=== PATIENT | female | born 2000 | race Caucasian/White ===

== ENCOUNTER 2021-04-17 00:03 | Inpatient (IN) | payer OTHER ==
[~2021-04-17] VITALS: Ht 157.5 cm; Wt 95.3 kg
--- NOTE | 2021-04-17 11:37 | PR ---
[facility] [address] [place], [place] [address] Signed Progress Notes IP Datetime Report Generated by CPN: 04/17/2021 11:37 PROGRESS NOTES: [id number] Impression: Reassuring Heart Rate Procedures: Artificial ROM; Sterile Vag Exam Plan: Continue Present Management VITAL SIGNS: [id number] Vital Signs: Reviewed VS Notable Details: mild HTN EXAM: [id number] Dilatation: 1.0 Effacement: 50 Station: -2 Contractions: irregular, irritability MEMBRANES: [id number] Comments: Comfortable after epidural. Will hopefully develop more regular contraction pattern now. FETUS A: [id number] FHR Baseline: 145 Variability: Moderate 6-25bpm Accelerations: 15X15 Decelerations: None FHR Category: Category I Presentation: Vertex Comments on Fetus A: no evidence of metabolic acidosis FETUS B: [id number] Signing Physician: France Orlando MD Copies: ~ *Electronically Signed* 04/17/21 1137 FRANCE ORLANDO MD PATIENT NAME: JCARLOS TRAVIS PROGRESS NOTE DATE OF : 98 PHYSICIAN: FRANCE ORLANDO MD RPT #: [id number] REPORT IS CONFIDENTIAL AND NOT TO BE RELEASED WITHOUT AUTHORIZATION
--- NOTE | 2021-04-17 17:04 | PR ---
[facility] [address] [facility] [place], [place] [address] Signed Progress Notes IP Datetime Report Generated by DEA: 04/17/2021 17:04 PROGRESS NOTES: [id number] Impression: Normal Progression of Labor; Reassuring Heart Rate Procedures: Intrauterine Pressure Catheter; Sterile Vag Exam Plan: Augmentation VITAL SIGNS: [id number] Vital Signs: Reviewed VS Notable Details: mild HTN EXAM: [id number] Dilatation: 5.0 Effacement: 95 Station: -2 Contractions: irregular, irritability MEMBRANES: [id number] Comments: Some progress but ctxs difficult to apple picker and I suspect they need to be stronger. Will place IUPC and augment. FETUS A: [id number] FHR Baseline: 145 Variability: Moderate 6-25bpm Accelerations: 15X15 Decelerations: None FHR Category: Category I Presentation: Vertex Comments on Fetus A: no evidence of metabolic acidosis FETUS B: [id number] Signing Physician: France Orlando MD Copies: ~ *Electronically Signed* 04/17/21 1704 FRANCE ORLANDO MD PATIENT NAME: JCARLOS TRAVIS PROGRESS NOTE DATE OF : 98 PHYSICIAN: FRANCE ORLANDO MD RPT #: [id number] REPORT IS CONFIDENTIAL AND NOT TO BE RELEASED WITHOUT AUTHORIZATION
--- NOTE | 2021-04-17 19:40 | PR ---
[facility] [address] [place], [place] [address] Signed Progress Notes IP Datetime Report Generated by CPN: 04/17/2021 19:40 PROGRESS NOTES: [id number] Impression: Reassuring Heart Rate Procedures: Sterile Vag Exam Plan: Anesthesia Consult VITAL SIGNS: [id number] Vital Signs: Reviewed VS Notable Details: mild HTN EXAM: [id number] Dilatation: 7.0 Effacement: 80 Station: -1 Contractions: irregular, irritability MEMBRANES: [id number] Comments: status reassuring currently but this has required multiple position changes, stopping pit, using subq terb. Will continue close observation. FETUS A: [id number] FHR Baseline: 145 Variability: Moderate 6-25bpm Accelerations: 15X15 Decelerations: None FHR Category: Category I Presentation: Vertex Comments on Fetus A: no evidence of metabolic acidosis FETUS B: [id number] Signing Physician: France Orlando MD Copies: ~ *Electronically Signed* 04/17/211939 FRANCE ORLANDO MD PATIENT NAME: JCARLOS TRAVIS PROGRESS NOTE DATE OF : 98 PHYSICIAN: FRANCE ORLANDO MD RPT #: [id number] REPORT IS CONFIDENTIAL AND NOT TO BE RELEASED WITHOUT AUTHORIZATION
[2021-04-18] MEDS ORDERED: FLUOXETINE HCL10 M1 PO (18:42)
--- NOTE | 2021-04-19 09:39 | PR ---
[facility] [address] [place], [place] [address] Signed PP Progress Notes Datetime Report Generated by DEA: 04/19/2021 09:38 SUBJECTIVE: [id number] Pain: Within Normal Limits Nausea/Vomiting: Denies Vital Signs: [id number] Vital Signs: Reviewed Notable Details: mild HTN EXAM: Ongoing Cardiovascular: Not Done Respiratory: Not Done Abdomen/Uterus: Abnormal Lochia: Normal Vulva/Perineum: Not Done Breasts: Not Done CVA Tenderness: Not Done Extremities: Normal Incision: Not Applicable Progress: Not Applicable Exam Comments: Fundus firm, NT @ U-1. H/H 7.4/23.7, WBC 18, plat 198k IMPRESSION/PLAN/PROCEDURES: [id number] Impression: Normal Progression Plan: Continue Present Management Other Procedures: IV iron Progress Notes: Very anemic though tolerating it thus far. She never started iron prescribed during her as she had been anemic at that time as well. Will do IV iron today but reinforced need to take her iron consistently after discharge. Her BPs have not been in the severe range though higher than her baseline. She will be discharged tomorrow by Dr. Enrique assuming she is still doing well to f/u with me on Thu. Signing Physician: France Orlando MD Copies: *Electronically Signed* 04/19/21 0938 FRANCE ORLANDO MD PATIENT NAME: JCARLOS TRAVIS PROGRESS NOTE DATE OF : 98 PHYSICIAN: FRANCE ORLANDO MD RPT #: [id number] REPORT IS CONFIDENTIAL AND NOT TO BE RELEASED WITHOUT AUTHORIZATION [address] [address] Signed ~ *Electronically Signed* 04/19/21 09 FRANCE ORLANDO MD PATIENT NAME: JCARLOS TRAVIS PROGRESS NOTE DATE OF : 98 PHYSICIAN: FRANCE ORLANDO MD RPT #: [id number] REPORT IS CONFIDENTIAL AND NOT TO BE RELEASED WITHOUT AUTHORIZATION
--- NOTE | 2021-04-19 23:03 | PR ---
[facility] [address] [place], [place] [address] Signed PP Progress Notes Datetime Report Generated by CPN: 04/19/2021 23:03 SUBJECTIVE: [id number] Pain: Within Normal Limits Nausea/Vomiting: Denies Flatus: No Vital Signs: [id number] Vital Signs: Reviewed Notable Details: Severe-range BP EXAM: Ongoing Cardiovascular: Normal Respiratory: Normal Abdomen/Uterus: Normal Lochia: Normal Vulva/Perineum: Not Done Breasts: Not Done CVA Tenderness: Not Done Extremities: Normal Incision: Not Applicable Progress: Not Applicable Exam Comments: Resting in bed, NAD, denies VICKERS/ vision changes Abd SNTND, FFBU Ext: 1+ BLLE pitting edema Neuro: BL Patellar DTRs 2+, neg clonus BL IMPRESSION/PLAN/PROCEDURES: [id number] Impression: Induced Hypertension Plan: Continue Present Management Other Plans: Antihypertensive therapy Other Procedures: IV iron Progress Notes: Notified by RN of severe-range BP, not sustained on repeat initially but recurrent. -PC ratio 0.4 on admission, consistent with pre-eclampsia without severe features -labetalol IV 20mg administered @ 2242 -labs significant for AST elevation to 43 from 15 on admission, Cr 0.82 from 0.74. Plt stable at 213. Signing Physician: Wellington Rtoh DO *Electronically Signed* 04/19/21 3947 WELLINGTON ROTH DO PATIENT NAME: JCARLOS TRAVIS PROGRESS NOTE DATE OF : 98 PHYSICIAN: WELLINGTON ROTH DO RPT #: [id number] REPORT IS CONFIDENTIAL AND NOT TO BE RELEASED WITHOUT AUTHORIZATION [address], [place] [address] Signed Copies: ~ *Electronically Signed* 04/19/21 2303 WELLINGTON ROTH DO PATIENT NAME: JCARLOS TRAVIS PROGRESS NOTE DATE OF : 98 PHYSICIAN: WELLINGTON ROTH DO RPT #: [id number] REPORT IS CONFIDENTIAL AND NOT TO BE RELEASED WITHOUT AUTHORIZATION
--- NOTE | 2021-04-20 09:38 | PR ---
[facility] [address] [place], [place] [address] Signed PP Progress Notes Datetime Report Generated by DEA: 04/20/2021 09:37 SUBJECTIVE: [id number] Pain: Within Normal Limits Nausea/Vomiting: Denies Flatus: Yes Bowel Movement: Yes Vital Signs: [id number] Vital Signs: Reviewed Notable Details: normotensive to mildly elevated since starting IV MgSO4. Error @ 0836; per RN pt was moving arm when cuff started to inflate, see repeat 2 minutes later. EXAM: Ongoing Cardiovascular: Normal Respiratory: Normal Abdomen/Uterus: Normal Lochia: Normal Vulva/Perineum: Not Done Breasts: Not Done CVA Tenderness: Not Done Extremities: Abnormal Incision: Not Applicable Progress: Abnormal Exam Comments: NAD, lying in bed, talking with her mother on FaceTime RRR No dyspnea/ retractions Abd: SNTND, neg Kemp's sign, RUQ pain resolved since norco. FFBU. Ext: 1+ BLLE pitting edema Neuro: Patellar DTRs 3+ BL, 1 beat clonus on Left. IMPRESSION/PLAN/PROCEDURES: [id number] Impression: Difficulties; Induced Hypertension Plan: Continue Present Management Other Plans: Antihypertensive therapy Other Procedures: IV iron Progress Notes: PPD#2 s/p , complicated by preEclampsia -MgSO4 started at 0546 for severe-range BP requiring repeated treatment with antihypertensive agents, 6g initial bolus then 2g/hr. Will increase rate to 2.5g/hr based on clinical exam -s/p IV Labetalol 20mg, 40mg, 40mg *Electronically Signed* 04/20/21 0937 WELLINGTON ROTH DO PATIENT NAME: JCARLOS TRAVIS PROGRESS NOTE DATE OF : 98 PHYSICIAN: WELLINGTON ROTH DO RPT #: [id number] REPORT IS CONFIDENTIAL AND NOT TO BE RELEASED WITHOUT AUTHORIZATION [facility] [address] [facility] [place], [place] [address] Signed -Normotensive to mildly elevated BP since starting magnesium, tolerating well. Next magnesium level due at 1130 -Mild elevation in AST and Cr, plan to repeat labs tomorrow am prior to DC MgSO4 Chronic anemia with acute blood loss - s/p IV iron infusion Baby currently under bilirubin lights Plan: -continue MgSO4 x 24 hrs, with repeat labs tomorrow am prior to discontinuing Magnesium -continue Mg level every 6 hours Discussed with pt, she is in agreement with plan Signing Physician: Wellington Roth DO Copies: ~ *Electronically Signed* 04/20/2137 WELLINGTON ROTH DO PATIENT NAME: JCARLOS TRAVIS PROGRESS NOTE DATE OF : 98 PHYSICIAN: WELLINGTON ROTH #: [id number] REPORT IS CONFIDENTIAL AND NOT TO BE RELEASED WITHOUT AUTHORIZATION
--- NOTE | 2021-04-20 17:47 | EKG ---
[facility] [address] [facility] [place], [place] [address] Signed Normal sinus rhythm with sinus arrhythmia Normal ECG No previous ECGs available Confirmed by VANNESA JONES DO ([id number]) on 04/20/2021 5:47:34 PM Electronically Signed By: VANNESA JONES DO 04/20/21 1747 PATIENT NAME: JCARLOS TRAVIS Electrocardiogram DATE OF : 98 PHYSICIAN: VANNESA OJNES DO REPORT #: [id number] REPORT IS CONFIDENTIAL AND NOT TO BE RELEASED WITHOUT AUTHORIZATION
--- NOTE | 2021-04-21 07:24 | PR ---
[facility] [address] [place], [place] [address] Signed PP Progress Notes Datetime Report Generated by CPN: 04/21/2021 07:24 SUBJECTIVE: [id number] Pain: Within Normal Limits Nausea/Vomiting: Denies Flatus: Yes Bowel Movement: No Vital Signs: [id number] Vital Signs: Reviewed Notable Details: Intermittent mildly elevated BP while on MgSO4, no further severe BP EXAM: Ongoing Cardiovascular: Normal Respiratory: Normal Abdomen/Uterus: Normal Lochia: Normal Vulva/Perineum: Not Done Breasts: Not Done CVA Tenderness: Not Done Extremities: Normal Incision: Not Applicable Progress: Abnormal Exam Comments: NAD, lying in bed RRR No dyspnea or retractions Abd SNTND, FFBU Ext: 1+ BLLE pitting edema, IPCs in place : Hall in place, diuresing very well Neuro: Patellar DTRs 2+, no clonus IMPRESSION/PLAN/PROCEDURES: [id number] Impression: Induced Hypertension Plan: Continue Present Management Other Plans: Antihypertensive therapy Other Procedures: IV iron Progress Notes: Pt is a 20 yo PPD # 3 s/p , with course complicated by development of severe features -sustained severe BP requiring antihypertensive therapy, Labetalol IV 20mg, then 40mg, then additional 40mg administered. AST and Cr elevated. -MgSO4 was started 04/20 and continued for 24 hours, pt had intermittent headache while on Magnesium, each time responded well to [place] *Electronically Signed* 04/21/21 0709 WELLINGTON ROTH DO PATIENT NAME: JCARLOS TRAVIS PROGRESS NOTE DATE OF : 98 PHYSICIAN: WELLINGTON ROTH DO RPT #: [id number] REPORT IS CONFIDENTIAL AND NOT TO BE RELEASED WITHOUT AUTHORIZATION [facility] [address] [facility] [place] [address] Signed -Procardia 30XL started this morning at time of MGSO4 discontinuation, AST improving Plan: Continue to monitor BP through the day today, if BP are perfect on medication may consider DC to home tonight, otherwise plan for DC in the am Signing Physician: Wellington Roth DO Copies: ~ *Electronically Signed* 04/21/21 0724 WELLINGTON ROTH DO PATIENT NAME: JCARLOS TRAVIS PROGRESS NOTE DATE OF : 98 PHYSICIAN: WELLINGTON ROTH DO RPT #: [id number] REPORT IS CONFIDENTIAL AND NOT TO BE RELEASED WITHOUT AUTHORIZATION
--- NOTE | 2021-04-22 08:33 | PR ---
[facility] [address] [facility] [place], [place] [address] Signed PP Progress Notes Datetime Report Generated by CPN: 04/22/2021 08:33 SUBJECTIVE: [id number] Pain: Within Normal Limits Nausea/Vomiting: Denies Flatus: Yes Bowel Movement: No Vital Signs: [id number] Vital Signs: Reviewed Notable Details: mild increases in BP on Procardia EXAM: Met Cardiovascular: Not Done Respiratory: Not Done Abdomen/Uterus: Abnormal Lochia: Normal Vulva/Perineum: Not Done Breasts: Not Done CVA Tenderness: Not Done Extremities: Abnormal Incision: Not Applicable Progress: Abnormal Exam Comments: Fundus firm, NT @ U-1 1+ pitting LE edema H/H 8.8/27.9, WBC 11.6, plat 344k BUN/Creat 5/0.8 AST 28 IMPRESSION/PLAN/PROCEDURES: [id number] Impression: Normal Progression; Induced Hypertension Plan: Discharge Other Plans: Antihypertensive therapy Other Procedures: IV iron Progress Notes: BPs much better on the Procardia and she is otherwise doing well. I feel she is ready for D/C. Signing Physician: France Orlando MD Copies: *Electronically Signed* 04/22/21832 FRANCE ORLANDO MD PATIENT NAME: JCARLOS TRAVIS PROGRESS NOTE DATE OF : 98 PHYSICIAN: FRANCE ORLANDO MD RPT #: [id number] REPORT IS CONFIDENTIAL AND NOT TO BE RELEASED WITHOUT AUTHORIZATION [facility] [address] [place], [place] [address] Signed ~ *Electronically Signed* 04/22/21 0833 FRANCE ORLANDO MD PATIENT NAME: JCARLOS TRAVIS PROGRESS NOTE DATE OF : 98 PHYSICIAN: FRANCE ORLANDO MD RPT #: [id number] REPORT IS CONFIDENTIAL AND NOT TO BE RELEASED WITHOUT AUTHORIZATION
== END 2021-04-22 10:15 | disposition home or self-care (01) | DRG 806 ==
LOC: FBC 00:03
PROVIDERS: ADMIT Obstetrics & Gynecology; ATTEND Obstetrics & Gynecology
PROC: 10E0XZZ Delivery of Products of Conception, External Approach (ICD-10-PCS; principal; 2021-04-17)
PROC: 0KQM0ZZ Repair Perineum Muscle, Open Approach (ICD-10-PCS; 2021-04-17)
PROC: 10907ZC Drainage of Amniotic Fluid, Therapeutic from Products of Conception, Via Natural or Artificial Opening (ICD-10-PCS; 2021-04-17)
PROC: 3E0DXGC Introduction of Other Therapeutic Substance into Mouth and Pharynx, External Approach (ICD-10-PCS; 2021-04-17)
PROC: 10H07YZ Insertion of Other Device into Products of Conception, Via Natural or Artificial Opening (ICD-10-PCS; 2021-04-17)
PROC: 3E0R3BZ Introduction of Anesthetic Agent into Spinal Canal, Percutaneous Approach (ICD-10-PCS; 2021-04-17)
PROC: 00HU33Z Insertion of Infusion Device into Spinal Canal, Percutaneous Approach (ICD-10-PCS; 2021-04-17)
DX: O14.04 Mild to moderate pre-eclampsia, complicating childbirth (principal); D62 Acute posthemorrhagic anemia; Z37.0 Single live birth; O99.214 Obesity complicating childbirth; E66.9 Obesity, unspecified; O99.344 Other mental disorders complicating childbirth; F32.A Depression, unspecified; F41.9 Anxiety disorder, unspecified; O64.0XX0 Obstructed labor due to incomplete rotation of fetal head, not applicable or unspecified; O99.02 Anemia complicating childbirth; O70.1 Second degree perineal laceration during delivery; Z3A.37 37 weeks gestation of pregnancy
CPT/HCPCS: 82565; 82570; 82803; 83735; 84156; 84450; 84520; 84550; 85027; 93005; 93010; A9270; J1644; J2405; J2590; J2795; J3010; J3105; J3475; J7121; Q0138; U0003

== ENCOUNTER 2024-04-01 13:55 | Emergency (ER) | payer OTHER ==
[~2024-04-01] VITALS: Ht 157.5 cm; Wt 60.9 kg
[~2024-04-01 13:55] MED LIST: DICYCLOMINE HCL20 MG PO; FLUOXETINE HCL10 M1 PO; HYDROXYZINE HCL25 MG PO; LEVOTHYROXINE75 MCG PO
[2024-04-01] MEDS ORDERED: LEVOTHYROXINE100 MCG PO (14:08)
[2024-04-01 15:50] VITALS: BP 108/65
== END 2024-04-01 15:50 | disposition home or self-care (01) ==
LOC: ED 13:55
DX: M79.605 Pain in left leg (principal); R22.42 Localized swelling, mass and lump, left lower limb; F17.200 Nicotine dependence, unspecified, uncomplicated; Z79.890 Hormone replacement therapy; Z79.899 Other long term (current) drug therapy
CPT/HCPCS: 99283

== ENCOUNTER 2024-04-05 04:08 | Emergency (ER) | payer OTHER ==
[~2024-04-05] VITALS: Ht 157.5 cm; Wt 58.0 kg
[~2024-04-05 04:08] MED LIST changes: +LEVOTHYROXINE100 MCG PO
--- OUTSIDE RECORDS SUMMARY | 2024-04-05 04:14 | XMS ---
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 - 2 Visits in 30 Days CARE PROVIDERS -[facility] Dentist: Wire Chief [facility] PHONE: [phone] -[facility] Dentist: Wire Chief [facility] [place] [facility] PHONE: [phone] - [place]- Dentist: Wire Chief [facility] PHONE: [phone] [facility]/Center: [facility] PHONE: [phone] JONY MESSER Emergency Medicine Current PHONE: Unknown Dennis has no Care Guidelines for this patient. [facility] VISIT COUNT (12 MO.) [address] [facility] TOTAL 4 NOTE: Visits indicate total known visits. ED/UCC VISIT TRACKING (12 MO.) 04/05/2024 04:08 [facility] [place] TYPE: Emergency COMPLAINT: - HEADACHE 04/01/2024 13:56 [facility] [place] TYPE: Emergency COMPLAINT: - LT LEG SWELLING DIAGNOSES: - Hormone replacement therapy - Localized swelling, mass and lump, left lower limb - Nicotine dependence, unspecified, uncomplicated - Other exterminator termite (current) drug therapy - Pain in left leg 01/15/2024 22:57 [facility] [place] TYPE: Emergency COMPLAINT: - SWALLOWED GLASS DIAGNOSES: - Adjustment disorder with anxiety - Foreign body of alimentary tract, part unspecified, initial encounter - Glass unspecified, entering into or through a natural orifice, initial encounter - Hormone replacement therapy - Nicotine dependence, unspecified, uncomplicated - Other usp (current) drug therapy 11/07/2023 14:[address] [facility] [place] TYPE: Emergency COMPLAINT: - ABDOMINAL PAIN DIAGNOSES: - Lower abdominal pain, unspecified - Nicotine dependence, unspecified, uncomplicated - Other usp (current) drug therapy INPATIENT VISIT TRACKING (12 MO.) No inpatient visits to display in this time frame [email or web address]
[2024-04-05] MEDS ORDERED: FLUOXETINE HCL40 MG (04:19)
[2024-04-05] MEDS ORDERED: diphenhydrAMINE HCL 50 MG/ML VIAL IV ONE (04:30)
[2024-04-05] MEDS ORDERED: SODIUM CHLORIDE 0.9% 1,000 ML IV SCH (04:30)
[2024-04-05] MEDS ORDERED: METOCLOPRAMIDE HCL 10 MG/2 ML SDV IV ONE (04:30)
[2024-04-05] MEDS ORDERED: KETOROLAC TROMETHAMINE 30 MG/ML VIAL IV ONE (04:30)
[2024-04-05 06:38] VITALS: BP 126/68
== END 2024-04-05 06:39 | disposition home or self-care (01) ==
LOC: ED 04:08
DX: G43.909 Migraine, unspecified, not intractable, without status migrainosus (principal); F17.200 Nicotine dependence, unspecified, uncomplicated; Z79.890 Hormone replacement therapy; Z79.899 Other long term (current) drug therapy
CPT/HCPCS: 96361; 96374; 96375; 99283-25; J1200; J1885; J2765; J7030